=== PATIENT | male | born 1970 | race African-American/Black ===

== ENCOUNTER 2017-06-14 07:39 | Emergency (ER) | payer MEDICAID, OTHER ==
[~2017-06-14] VITALS: Ht 172.7 cm; Wt 88.5 kg
[2017-06-14 08:25] VITALS: BP 130/85
[2017-06-14] MEDS ORDERED: methylPREDNISolone SOD SUCC 125 MG/2 ML VL IM ONE (08:30)
== END 2017-06-14 08:48 | disposition home or self-care (01) ==
LOC: ER 07:43
DX: L23.9 Allergic contact dermatitis, unspecified cause (principal); Z88.0 Allergy status to penicillin
CPT/HCPCS: 96372; 99283; J2930

== ENCOUNTER 2017-08-25 02:40 | Emergency (ER) | payer SELFPAY ==
[~2017-08-25] VITALS: Ht 172.7 cm; Wt 88.5 kg
[2017-08-25 03:07] VITALS: BP 103/56
[2017-08-25] MEDS ORDERED: diphenhdrAMINE HCL 50 MG/1 ML VL IM ONE (04:45)
[2017-08-25] MEDS ORDERED: methylPREDNISolone SOD SUCC 125 MG/2 ML VL IM ONE (04:45)
[2017-08-25] MEDS ORDERED: diphenhdrAMINE HCL 25 MG CAP PO ONE ×2 (04:50→05:00)
== END 2017-08-25 05:30 | disposition home or self-care (01) ==
LOC: ER 02:40
DX: T50.995A Adverse effect of other drugs, medicaments and biological substances, initial encounter (principal); Z88.0 Allergy status to penicillin; F17.210 Nicotine dependence, cigarettes, uncomplicated
CPT/HCPCS: 96372; 99283; J2930